=== PATIENT | female | born 1985 | race Caucasian/White ===

== ENCOUNTER 2017-07-03 08:40 | Inpatient (IN) | payer OTHER ==
[2017-07-03] MEDS ORDERED: DINOPROSTONE 10 MG VAGINAL SUPPOSITORY VG ONE (12:10)
[2017-07-03] MEDS ORDERED: ELECTROLYTE-148 SOLN 1,000 ML IV SCH ×2 (12:10→13:30)
[2017-07-03] MEDS ORDERED: BUTORPHANOL TARTRATE 1 MG/ML VIAL IVPUSH PRN (12:47)
[2017-07-03] MEDS ORDERED: PROMETHAZINE HCL 25 MG/1 ML VIAL IVPUSH ONE (12:47)
--- NOTE | 2017-07-03 12:54 | HP ---
Past Medical History - Primary Care Physician PCP:: Harpreet Stephen - Admission Chief Complaint: 38.6 weeks, rom, labor History of Present Illness: 31 yo f g edc by sono 07/11/17 c/o rom since 8 am today, contraction since 830 ,no fever. no bleeding, cx 1 cm post vx -3 , fhr cat 1, contraction q 2 min History Source: Patient Limitations to Obtaining History: No Limitations - Past Medical History ...: 3 ...Para: 2 ...Term: 2 ...: 0 ...Spon : 0 ...Induced : 0 ...LMP: 09/20/16 ... Weeks Gestation by Dates: 40.6 ...EDC by Dates: 06/27/17 ...EDC by Sono: 07/11/17 - Past Surgical History Hx Myomectomy: No Hx Transabdominal Cerclage: No - Smoking History Smoking history: Never smoked - Alcohol/Substance Use Hx Alcohol Use: No - Social History Usual Living Arrangement: Yes: With Spouse History of Recent Travel: No Home Medications - Allergies Allergies/Adverse Reactions: Allergies Allergy/AdvReac Type Severity Reaction Status Date / Time Penicillins Allergy Severe Rash Verified 07/03/17 09:24 - Home Medications Home Medications: Ambulatory Orders Vit No.130/Iron/FA [ Vitamins] 1 each PO DAILY 07/03/17 Review of Systems - Review of Systems Constitutional: reports: No Symptoms Eyes: reports: No Symptoms HENT: reports: No Symptoms Neck: reports: No Symptoms Cardiovascular: reports: No Symptoms Respiratory: reports: No Symptoms Gastrointestinal: reports: No Symptoms Genitourinary: reports: No Symptoms Breasts: reports: No Symptoms Reported Musculoskeletal: reports: No Symptoms Integumentary: reports: No Symptoms Neurological: reports: No Symptoms Endocrine: reports: No Symptoms Hematology/Lymphatic: reports: No Symptoms Psychiatric: reports: No Symptoms Physical Exam - Maternity Vital Signs: Vital Signs Temperature 98.9 F 07/03/17 09:45 Pulse Rate 78 07/03/17 09:45 Respiratory Rate 18 07/03/17 09:45 Blood Pressure 106/72 07/03/17 09:45 O2 Sat by Pulse Oximetry (%) Constitutional: Yes: Well Nourished, No Distress, Calm Eyes: Yes: WNL, Conjunctiva Clear, EOM Intact HENT: Yes: WNL, Atraumatic, Normocephalic Neck: Yes: WNL, Supple, Trachea Midline Cardiovascular: Yes: WNL, Regular Rate and Rhythm Breast(s): Yes: WNL - Abdominal Exam/OB Fundal Height: 40 Number of Fetuses: Single Presentation: Vertex Contractions: Yes Regularity: Regular Intensity: Mod/Strong Monitor Mode: External Heart Rate Location: [facility] Category: I Accelerations: Uniform Decelerations: None - Vaginal Exam/OB Vaginal Bleediing: No Speculum Exam: Yes Dilatation (cm): 1 Effacement (%): 50 Amniotic Membrane Status: Ruptured Nitrazine Test: Positive Presentation: Vertex/Position Station: -3 - Physical Exam Edema: Yes Edema: LLE: Trace, RLE: Trace Deep Tendon Reflex Grade: Normal +2 Hemorrhage Risk Assessment - Risk Factors Medium Risk Factors: Yes: None High Risk Factors: Yes: None Risk Score: 1 Risk Level: Medium Risk Problem List - Problems (1) with 38 completed weeks gestation Code(s): Z3A.38 - 38 WEEKS GESTATION OF (2) membrane rupture Code(s): WUP9103 - (3) Labor established Code(s): VJM6524 - Assessment/Plan fhr cat 1, admit , heart monitoring
[2017-07-03] MEDS ORDERED: DEXTROSE 5%-LACTATED RINGERS 1,000 ML IV SCH (13:00)
[2017-07-03 13:14] LABS: BASOPHIL 0.2 % (0-2.0); EOSINOPHIL 1.4 % (0-4.5); MCH 22.8 pg (25.7-33.7); MCHC 32.5 g/dl (32.0-36.0); MEAN CELL VOLUME 70.1 fl (80-96); MEAN PLT VOLUME 9.3 fl (7.5-11.1); NEUTROPHILS 79.6 % (42.8-82.8); PLATELET COUNT 210 K/MM3 (134-434); WHITE BLOOD COUNT 12.3 K/mm3 (4.0-10.0)
--- NOTE | 2017-07-03 13:15 | PN ---
Progress Note (short form) - Note Progress Note: cx 4 cm. 80 vx -2 mi , fhr cat 1 wants epidural Problem List - Problems (1) with 38 completed weeks gestation Code(s): Z3A.38 - 38 WEEKS GESTATION OF (2) membrane rupture Code(s): OBZ1197 - (3) Labor established Code(s): GSZ2957 -
[2017-07-03 13:39] LABS: INR 1.12 (0.82-1.09); PROTHROMBIN TIME (PATIENT) 12.6 SEC (9.98-11.88)
[2017-07-03 13:44] VITALS: BMI 26.6
[2017-07-03 13:52] LABS: ANION GAP 11 (8-16); CALCIUM 8.1 mg/dL (8.5-10.1); CO2 24 mmol/L (21-32); CREATININE 0.5 mg/dL (0.55-1.02); GLUCOSE,RANDOM 81 mg/dL (74-106)
[2017-07-03] MEDS ORDERED: FENTANYL/BUPIVACAINE/NS/PF - PCEA - 50 ML DISP.SYRIN EP SCH (15:00)
[2017-07-03] MEDS ORDERED: BENZOCAINE 20% 57 GM BOTTLE TP PRN (17:58)
[2017-07-03] MEDS ORDERED: BISACODYL 10 MG SUPP.RECT RC PRN (17:58)
[2017-07-03] MEDS ORDERED: oxyCODONE HCL 5 MG TABLET PO PRN (17:58)
[2017-07-03] MEDS ORDERED: WITCH HAZEL 50% (TUCKS) 40 PAD/JAR PAD TP PRN (17:58)
[2017-07-03] MEDS ORDERED: BENZOCAINE 28 GM HEMORRHOIDAL OINTMENT TP PRN (17:58)
[2017-07-03] MEDS ORDERED: METHYLERGONOVINE MALEATE 0.2 MG/1 ML AMP IM PRN (17:58)
[2017-07-03] MEDS ORDERED: D5W-LR W/ 20 UNITS OXYTOCIN 1,000 ML IV SCH (18:00)
[2017-07-03 19:25] LABS: VENOUS PH 7.33 (7.32-7.42)
[2017-07-03 19:26] LABS: VENOUS BLOOD GAS HCO3 24.4 meq/L (19-25)
[2017-07-03] MEDS: ACETAMINOPHEN 325 MG TABLET (FP) PO PRN (23:37)
[2017-07-03] MEDS: IBUPROFEN 600 MG TABLET (FP) PO PRN (23:39)
[2017-07-04 07:29] LABS: BASOPHIL 0.2 % (0-2.0); MCH 22.9 pg (25.7-33.7); MCHC 32.2 g/dl (32.0-36.0); MEAN PLT VOLUME 9.5 fl (7.5-11.1); NEUTROPHILS 78.3 % (42.8-82.8); PLATELET COUNT 205 K/MM3 (134-434); RDW 19.8 % (11.6-15.6); WHITE BLOOD COUNT 17.2 K/mm3 (4.0-10.0)
--- NOTE | 2017-07-04 08:10 | PN ---
Post Progress Note Post Day: 1 Type of Delivery: Vital Signs: Vital Signs Temperature 97.6 F 07/04/17 06:00 Pulse Rate 70 07/04/17 06:00 Respiratory Rate 18 07/04/17 06:00 Blood Pressure 104/72 07/04/17 06:00 O2 Sat by Pulse Oximetry (%) 100 07/03/17 18:45 Breast Exam: Yes: Soft Uterus: Yes: Fundus Firm Abdomen/GI: Yes: Abdomen soft Lochia: Yes: Rubra Lochia, amount: Small Extremities: Yes: Calves non-tender Perineum: Yes: Intact Activity: Ambulating - Labs Labs: CBC WBC 17.2 K/mm3 (4.0-10.0) H D 07/04/17 06:05 RBC 4.87 M/mm3 (3.60-5.2) 07/04/17 06:05 Hgb 11.1 GM/dL (10.7-15.3) 07/04/17 06:05 Hct 34.6 % (32.4-45.2) 07/04/17 06:05 MCV 71.0 fl (80-96) L 07/04/17 06:05 MCH 22.9 pg (25.7-33.7) L 07/04/17 06:05 MCHC 32.2 g/dl (32.0-36.0) 07/04/17 06:05 RDW 19.8 % (11.6-15.6) H 07/04/17 06:05 Plt Count 205 K/MM3 (134-434) 07/04/17 06:05 MPV 9.5 fl (7.5-11.1) 07/04/17 06:05 Neutrophils % 78.3 % (42.8-82.8) 07/04/17 06:05 Lymphocytes % 8.8 % (8-40) 07/04/17 06:05 Monocytes % 11.7 % (3.8-10.2) H 07/04/17 06:05 Eosinophils % 1.0 % (0-4.5) 07/04/17 06:05 Basophils % 0.2 % (0-2.0) 07/04/17 06:05 Assessment/Plan as above oob reg diet check cbc
[2017-07-04] MEDS: FERROUS SO4 325 MG TABLET (FP) PO SCH ×2 (09:13→18:20)
[2017-07-04] MEDS ORDERED: DIPHTH,PERTUSS(ACELL),TET 0.5 ML DISP.SYRIN IM ONE (10:00)
[2017-07-04] MEDS: PRENATAL VITAMINS W/ FOLIC ACID TABLET (FP) PO SCH (12:48)
[2017-07-04] MEDS: ACETAMINOPHEN 325 MG TABLET (FP) PO PRN ×2 (13:01→21:59)
[2017-07-04] MEDS: IBUPROFEN 600 MG TABLET (FP) PO PRN ×2 (13:03→21:59)
[2017-07-04] MEDS ORDERED: SENNOSIDES/DOCUSATE COMBO (SENNA PLUS) TABLET (UD) PO PRN (22:00)
[2017-07-05] MEDS: FERROUS SO4 325 MG TABLET (FP) PO SCH ×2 (06:55→16:34)
[2017-07-05 08:41] VITALS: BP 101/67; PULSE 67; TEMP 98.8
[2017-07-05] MEDS: PRENATAL VITAMINS W/ FOLIC ACID TABLET (FP) PO SCH (09:15)
[2017-07-05] MEDS: IBUPROFEN 600 MG TABLET (FP) PO PRN (11:21)
[2017-07-05] MEDS: ACETAMINOPHEN 325 MG TABLET (FP) PO PRN (11:22)
--- NOTE | 2017-07-05 17:09 | DS ---
Physical Exam-PATIENT SERVICES SPECIALIST Vital Signs: Vital Signs Temperature 98.8 F 07/05/17 07:30 Pulse Rate 67 07/05/17 07:30 Respiratory Rate 20 07/05/17 07:30 Blood Pressure 101/67 07/05/17 07:30 O2 Sat by Pulse Oximetry (%) 100 07/03/17 18:45 Constitutional: Yes: Well Nourished, No Distress, Calm Eyes: Yes: WNL, Conjunctiva Clear, EOM Intact HENT: Yes: WNL, Atraumatic, Normocephalic Neck: Yes: WNL, Supple, Trachea Midline Cardiovascular: Yes: WNL, Regular Rate and Rhythm Respiratory: Yes: WNL, Regular, CTA Bilaterally Gastrointestinal: Yes: WNL ...Rectal Exam: Yes: WNL Renal/: Yes: WNL ....Post : Yes: Uterus firm, Uterus non-tender, Slight lochia rubra Breast(s): Yes: WNL Musculoskeletal: Yes: WNL Extremities: Yes: WNL Edema: No Integumentary: Yes: WNL Neurological: Yes: WNL, Alert, Oriented ...Motor Strength: WNL Psychiatric: Yes: WNL, Alert, Oriented Labs: CBC, BMP 07/04/17 06:05 07/03/17 12:55 Delivery - Delivery Vaginal Delivery: Spontaneous (no complication) Type of Anesthesia: Epidural Episiotomy/Laceration: None EBL (cc): 300 Delivery, Single - Stages of Labor Date 1st Stage Initiatied: 07/03/17 Time 1st Stage Initiated: 12:00 Date 2nd Stage Initiated: 07/03/17 Time 2nd Stage Initiated: 17:05 Date of Delivery: 07/03/17 Time of Delivery: 17:46 Time Placenta Delivered: 17:50 Placenta: Yes: Spontaneous - Condition of Infant Telegraph Service Clerk/[employer] Dispatcher Present: No Gender: Male Weight: 8 lb 10 oz Position: Left, OA Total Hours ROM (Hrs/Mins): 9hrs/ 50mins - 1 Minute Total Score: 9 5 Minutes Total Score: 9 - Feeding Plan Initial Plan: Elected not to breastfeed exclusively throughout hospitalization Discharge Summary Reason For Visit: labor Current Active Problems membrane rupture (Acute) Labor established (Acute) with 38 completed weeks gestation (Acute) Procedures: Principal: Condition: Good - Instructions Diet, Activity, Other Instructions: If fever, Pain or heavy bleeding. Call M.D. Call [facility] and make appt. to be seen in 6 wks. [facility] [phone] Referrals: Harpreet Stephen MD [Staff Physician] - Disposition: HOME - Home Medications Comprehensive Discharge Medication List: Ambulatory Orders Vit No.130/Iron/FA [ Vitamins] 1 each PO DAILY 07/03/17 Ibuprofen [Motrin -] 600 mg PO TID #21 tablet 07/04/17
== END 2017-07-05 17:45 | disposition home or self-care (01) | DRG 560 ==
LOC: JDEL 08:40 → JLDR 11:50 → J3W 19:45
PROVIDERS: ADMIT Obstetrics & Gynecology; ATTEND Obstetrics & Gynecology
PROC: 10E0XZZ Delivery of Products of Conception, External Approach (ICD-10-PCS; principal; 2017-07-04)
DX: O80 Encounter for full-term uncomplicated delivery (principal); Z3A.38 38 weeks gestation of pregnancy; Z37.0 Single live birth
CPT/HCPCS: 36415; 59025; 59409; 80048; 82803; 85025; 85610; 85730; 86593; 86850; 86900; 86901; 90715

== ENCOUNTER 2017-10-04 04:59 | Day surgery (SDC) | payer OTHER ==
[2017-10-01 10:50] VITALS: BMI 24.1
--- NOTE | 2017-10-04 14:35 | HP ---
Past Medical History - Primary Care Physician PCP:: Harpreet Stephen - Admission Chief Complaint: admission for sterlzation History of Present Illness: 32 yo f wants BTL, procedure, risks , benefit, ulternatives discussed History Source: Patient Limitations to Obtaining History: Language Barrier - Past Surgical History Hx Myomectomy: No Hx Transabdominal Cerclage: No - Smoking History Smoking history: Never smoked Have you smoked in the past 12 months: No - Alcohol/Substance Use Hx Alcohol Use: No (social) - Social History History of Recent Travel: No Home Medications - Allergies Allergies/Adverse Reactions: Allergies Allergy/AdvReac Type Severity Reaction Status Date / Time Penicillins Allergy Severe Rash Verified 10/04/17 13:18 - Home Medications Home Medications: Ambulatory Orders NK [No Known Home Medication] 10/01/17 Review of Systems - Review of Systems Constitutional: reports: No Symptoms Eyes: reports: No Symptoms HENT: reports: No Symptoms Neck: reports: No Symptoms Cardiovascular: reports: No Symptoms Respiratory: reports: No Symptoms Genitourinary: reports: No Symptoms Breasts: reports: No Symptoms Reported Musculoskeletal: reports: No Symptoms Integumentary: reports: No Symptoms Neurological: reports: No Symptoms Endocrine: reports: No Symptoms Hematology/Lymphatic: reports: No Symptoms Physical Exam-CHIEF HOSPITAL ADMINISTRATOR Vital Signs: Vital Signs Temperature 97.6 F 10/04/17 13:14 Pulse Rate 75 10/04/17 13:14 Respiratory Rate 16 10/04/17 13:14 Blood Pressure 103/70 10/04/17 13:14 O2 Sat by Pulse Oximetry (%) 100 10/04/17 13:15 Constitutional: Yes: Well Nourished, No Distress, Calm Eyes: Yes: WNL, Conjunctiva Clear, EOM Intact HENT: Yes: WNL, Atraumatic, Normocephalic Neck: Yes: WNL, Supple, Trachea Midline Cardiovascular: Yes: WNL, Regular Rate and Rhythm Respiratory: Yes: WNL, Regular, CTA Bilaterally Gastrointestinal: Yes: WNL ...Rectal Exam: Yes: WNL Renal/: Yes: WNL External Genitalia: Yes: Normal Vaginal Exam: Yes: Normal Cervix: Yes: Normal Uterus: Yes: Normal Adnexa: Not Palpable: Left, Right Breast(s): Yes: WNL Musculoskeletal: Yes: WNL Extremities: Yes: WNL Edema: No Integumentary: Yes: WNL Neurological: Yes: WNL, Alert, Oriented ...Motor Strength: WNL Psychiatric: Yes: WNL, Alert, Oriented Problem List - Problem (1) Admission for sterilization Code(s): Z30.2 - ENCOUNTER FOR STERILIZATION Assessment/Plan admit for laparoscopic bilateral tubal fulgration
[2017-10-04] MEDS ORDERED: BUPIVACAINE HCL/PF 0.5% (5MG/ML) 10 ML VIAL ONE (14:57)
[2017-10-04] MEDS ORDERED: IBUPROFEN 600 MG TABLET (FP) PO PRN (15:34)
[2017-10-04] MEDS ORDERED: IBUPROFEN 800 MG/8 ML IJ IVPB PRN (15:34)
[2017-10-04] MEDS ORDERED: ONDANSETRON 4 MG/2 ML VIAL IVPUSH PRN ×2 (15:34→17:19)
[2017-10-04] MEDS ORDERED: oxyCODONE HCL 5 MG TABLET PO PRN ×2 (15:34→17:19)
[2017-10-04] MEDS ORDERED: ELECTROLYTE-148 SOLN 1,000 ML IV SCH (15:45)
[2017-10-04] MEDS ORDERED: MIDAZOLAM HCL 2 MG/2 ML SINGLE DOSE VIAL ONE (16:22)
[2017-10-04] MEDS ORDERED: PROPOFOL 20 ML ONE (16:24)
[2017-10-04] MEDS ORDERED: LIDOCAINE HCL/PF 2% SDV 5ML VIAL ONE (16:33)
[2017-10-04] MEDS ORDERED: DEXAMETHASONE SOD PHOSPHATE 4 MG/1 ML VIAL ONE (16:33)
[2017-10-04] MEDS ORDERED: NEOSTIGMINE METHYLSULFATE 0.5 MG/ML - 10 ML MDV ONE (16:34)
[2017-10-04] MEDS ORDERED: GLYCOPYRROLATE 0.2 MG/1 ML VIAL ONE (16:34)
[2017-10-04] MEDS ORDERED: KETOROLAC TROMETHAMINE 30 MG/1 ML VIAL ONE (16:45)
--- NOTE | 2017-10-04 17:53 | OP ---
DATE OF OPERATION: 10/04/2017 PREOPERATIVE DIAGNOSIS: Voluntary sterilization. POSTOPERATIVE DIAGNOSIS: Voluntary sterilization. PROCEDURE: Laparoscopic bilateral tubal fulguration. SURGEON: Harpreet Stephen MD ANESTHESIA: General. ANESTHESIOLOGIST: ESTIMATED BLOOD LOSS: Minimal. DESCRIPTION OF OPERATIVE PROCEDURE: Patient was taken to the operating room. Under adequate general anesthesia, abdomen and perineum were prepped and draped. In dorsal lithotomy position, examination under anesthesia revealed the external genitalia to be normal. Vagina was normal. Cervix was clean; no lesion. Uterus was normal size. Adnexa: No masses were palpable. Then, with a weighted speculum in the vagina, anterior lip of the cervix was grasped with a single-tooth tenaculum. Then, a Hulka was introduced into the uterine cavity for manipulation. Michael was inserted. Then, a 5-mm incision was made through the umbilical area, and then, Veress needle was introduced. Pneumoperitoneum established. A 5-mm trocar was introduced, and then, scope was introduced. Under direct vision, a 5-mm trocar was introduced through the suprapubic area. Upper abdomen was checked, was normal. Both tubes and ovaries were normal. Uterus normal size. Cul-de-sac free of adhesions. Both ovaries normal. Then, the right tube was grasped with bipolar cautery and cauterized in 3 portions 2 cm apart. The same procedure repeated for the opposite tube. Visualization of both tubes showed adequate cauterization. No active bleeding. Abdomen was emptied of all the gases. Instruments were withdrawn. The suprapubic and infraumbilical incisions were closed with interrupted suture of 3-0 Biosyn, and the skin was closed with Dermabond glue. Patient tolerated the procedure well, left the OR in good condition. Fadi [id number]
[2017-10-04 18:08] VITALS: TEMP 98
[2017-10-04] MEDS ORDERED: IBUPROFEN 600 MG TABLET (FP) PO ONE (19:00)
[2017-10-04 19:26] VITALS: BP 100/70; PULSE 68
== END 2017-10-04 19:45 | disposition home or self-care (01) ==
LOC: JASU-SURG 04:59
PROVIDERS: ATTEND Obstetrics & Gynecology
PROC: 0U574ZZ Destruction of Bilateral Fallopian Tubes, Percutaneous Endoscopic Approach (ICD-10-PCS; principal; 2017-10-04 15:30)
DX: Z30.2 Encounter for sterilization (principal)
CPT/HCPCS: 84703; 94760